=== PATIENT | female | born 1960 | race Caucasian/White ===

== ENCOUNTER → 2016-12-15 | Outpatient (CLI) | payer OTHER ==
--- NOTE | 2016-12-15 10:10 | DIAGNOSTIC IMAGING REPORT ---
THYROID ULTRASOUND HISTORY: THYROID NODULE COMPARISON: None. FINDINGS: Right lobe: 5.5 x 1.8 x 1.6 cm. There are few tiny cysts with the largest in the lower pole measuring 5 mm. Left lobe: 4.9 x 1.9 x 1.3 cm. There are few small complex nodules/cysts. Largest cystic nodule measures 10 x 7 x 4 mm. Isthmus: 3 mm in thickness. No nodules. IMPRESSION: A few small bilateral complex nodules/cysts with the largest on the left measuring 10 x 7 x 4 mm. These do not meet sonographic criteria for biopsy. Electronically signed by: Gt Vera M.D. 12/15/2016 10:09 AM Dictated Date/Time: 12/15/2016 10:04 AM
== END | disposition home or self-care (01) ==
LOC: C.ULTR 09:12
PROVIDERS: ATTEND Family Medicine
DX: E04.2 Nontoxic multinodular goiter (principal)

== ENCOUNTER → 2016-12-20 | Outpatient (CLI) | payer OTHER ==
--- NOTE | 2016-12-20 10:44 | DIAGNOSTIC IMAGING REPORT ---
RIGHT ANKLE MIN 3 VIEWS ROUTINE CLINICAL HISTORY: M25.571 right ankle pain COMPARISON: None. DISCUSSION: There is an old healed distal fibular fracture. There is an old healed fracture the medial malleolus. No acute fractures are visualized. The ankle mortise appears intact. There is a tiny plantar calcaneal spur. 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 No acute fractures Electronically signed by: Kerwin Cannon M.D. 12/20/2016 10:42 AM Dictated Date/Time: 12/20/2016 10:41 AM
== END | disposition home or self-care (01) ==
LOC: C.RAD 10:22
PROVIDERS: ATTEND Family Medicine
DX: M25.571 Pain in right ankle and joints of right foot (principal)

== ENCOUNTER → 2017-01-07 | Outpatient (CLI) | payer OTHER ==
--- NOTE | 2017-01-10 13:48 | MAMMOGRAPHY REPORT ---
BILATERAL DIGITAL SCREENING MAMMOGRAM TOMOSYNTHESIS WITH CAD: 01/07/2017 CLINICAL HISTORY: Routine screening. TECHNIQUE: Breast tomosynthesis in addition to standard 2D mammography was performed. Current study was also evaluated with a Computer Aided Detection (CAD) system. COMPARISON: Comparison is made to exam dated: 09/13/2006. BREAST COMPOSITION: There are scattered areas of fibroglandular density in both breasts. FINDINGS: There are nodular asymmetries seen within the left breast on the cc view posteriorly along the posterior nipple line, possibly projecting superiorly on the MLO view, for which spot compression tomosynthesis views and possible breast ultrasound are recommended for further evaluation. The remainder of both breasts demonstrate no suspicious masses, calcifications, or areas of sap security architect ural distortion noted. IMPRESSION: ACR BI-RADS CATEGORY 0: INCOMPLETE EVALUATION: NEED ADDITIONAL IMAGING EVALUATION Left breast asymmetries, for which additional imaging evaluation is recommended. The patient will be called to schedule an appointment. Approximately 10% of breast cancers are not detected with mammography. A negative mammographic report should not delay biopsy if a clinically suggestive mass is present. Tracee Rushing M.D. ah/:01/08/2017 14:59:46 Sql Server Developer: Susan ROWE(R)(M), [facility] letter sent: Addl Imaging 0 BI-RADS Code: ACR BI-RADS Category 0: Incomplete Evaluation: Need Additional Imaging Evaluation
== END | disposition home or self-care (01) ==
LOC: C.MAMM 14:32
PROVIDERS: ATTEND Family Medicine
DX: Z12.31 Encounter for screening mammogram for malignant neoplasm of breast (principal); R92.8 Other abnormal and inconclusive findings on diagnostic imaging of breast

== ENCOUNTER → 2017-01-21 | Outpatient (CLI) | payer OTHER ==
--- NOTE | 2017-01-21 12:35 | MAMMOGRAPHY REPORT ---
UNILATERAL LEFT DIGITAL DIAGNOSTIC MAMMOGRAM TOMOSYNTHESIS AND TARGETED LEFT ULTRASOUND: 01/21/2017 CLINICAL HISTORY: Callback from screening mammogram for left breast asymmetries. TECHNIQUE: Breast tomosynthesis in addition to standard 2D mammography was performed. Spot compress ion left CC and MLO 2-D and tomosynthesis images were obtained. COMPARISON: Comparison is made to exams dated: 01/07/2017 mammogram - [facility] an d 09/13/2006. BREAST COMPOSITION: There are scattered areas of fibroglandular density in the left breast. FINDINGS: Spot compression views demonstrate a persistent low density partially circumscribed and par tially obscured oval 10 mm mass in the left breast along the posterior nipple line on the cc view, th ought to project inferiorly based on the tomosynthesis localizer bar. Additionally, there is an oval partially circumscribed and partially obscured 6 mm mass within the left medial breast on the cc vie w which may project superiorly based on the MLO spot compression views Targeted ultrasound was performed of the left breast in the region of the mammographic masses. In th e left breast at 6:00, 3 cm from the nipple, there is an oval circumscribed hypoechoic solid appearin g mass which measures 6 x 2 x 7 mm. This corresponds with the larger mammographic mass. In the left breast at 10:00, 7 cm from the nipple, there is a possible oval circumscribed hypoechoic 5 x 4 x 3 m m mass. This may correspond with the smaller mammographic mass. Given that the masses are not clear ly cystic and may be solid, and given that they are newly visualized and not seen on the prior 2006 e xam, the masses are indeterminate and ultrasound-guided core needle biopsy is recommended for further evaluation. IMPRESSION: ACR BI-RADS CATEGORY 4: SUSPICIOUS, TARGETED ULTRASOUND ACR BI-RADS CATEGORY 4: SUSPICIO US Hypoechoic 7 mm mass in the left breast at 6:00 and hypoechoic 5 mm mass in the left breast at 10:00, which are felt to correspond with the newly visualized mammographic masses. The masses are indeterm inate and ultrasound-guided core needle biopsy is recommended for further evaluation. A phone call was made to the physician's office to confirm faxed results were received. The patient has been verbally notified of the results. She tentatively scheduled the biopsies before leaving the department. Approximately 10% of breast cancers are not detected with mammography. A negative mammographic report should not delay biopsy if a clinically suggestive mass is present. Tracee Rushing M.D. ah/:01/21/2017 09:43:52 Carbon Capture Power Plant Operator: Katherine BOWSER)(Sobeida), [facility] letter sent: Abnormal 4/5 BI-RADS Code: ACR BI-RADS Category 4: Suspicious Ultrasound BI-RADS: ACR BI-RADS Category 4: Suspici ous
== END | disposition home or self-care (01) ==
LOC: C.MAMM 09:03
PROVIDERS: ATTEND Family Medicine
DX: N63 Unspecified lump in breast (principal)

== ENCOUNTER → 2017-02-04 | Outpatient (CLI) | payer OTHER ==
--- NOTE | 2017-02-04 09:50 | Discharge Instructions ---
Discharge Instructions Procedure Procedure Date: Feb 04, 2017. Reason for visit: Left Masses. Discharge Discharge Date: Feb 04, 2017. Discharge Diagnosis: status post breast biopsy Instructions Activity Recommendations: Additional Limitations (see below) Return to School/Work: no limitations Recommended Home Diet: No Limitations Provider Instructions: ACTIVITY RECOMMENDATIONS: * No lifting, pushing, pulling or exercising the affected side for three days. RETURN TO SCHOOL/WORK: * You may return to work/school after the procedure, but do not perform any strenuous activities for 24 to 48 hours. MEDICATIONS: * Tylenol (two 325 mg) every four to six hours if needed for mild pain (if not allergic to Tylenol). DIET: * Resume previous diet. SPECIAL CARE INSTRUCTIONS: * Keep biopsy site dry for 24 hours. May shower after 24 hours, but do not soak (bathe) incision. * May remove Tegaderm (plastic patch) tomorrow AFTER showering. * Leave the steri-strips on for one week. Allow the steri-strips to fall off by themselves. If not off after one week, you may remove them. You may place a Bandaid crosswise over the strips, if desired. * Apply ice 10 minutes on and 10 minutes off as needed. * Wear a bra at bedtime to sleep more comfortably for 2-3 days. * Your referring physician should have the results after approximately 5 to 7 business days. * Call for unusual bleeding, fever, drainage, etc or if you have any questions call during normal business hours or after hours call Dr Rushing, . FOLLOW UP VISIT: Follow-up with Referring Physician as scheduled. Marko Ray Recommendations: Call your doctor if: * Temperature above 101 degrees * Pain not relieved by pain medicine ordered * There is increased drainage or redness from any incision * You have any unanswered questions or concerns. Your Doctors Instructions noted above were prepared by provider Tracee Rushing. Patient Signature Section: Patient Instructions Signature Page Allegra Escobar Patient (or Guardian) Signature/Date: I have read and understand the instructions given to me by my caregivers. Caregiver/RN/Doctor Signature/Date: The above-named patient and/or guardian has received patient instructions on this date. + Original Patient Signature Page (only) stays with chart. Please make copy for patient.
--- NOTE | 2017-02-04 12:44 | MAMMOGRAPHY REPORT ---
FINE NEEDLE ASPIRATION LEFT BREAST: 02/04/2017 CLINICAL HISTORY: Left 10:00 breast mass. COMPARISON: Comparison is made to exams dated: 02/04/2017 mammogram, 01/21/2017 mammogram, 01/21/2017 ult rasound, 01/07/2017 mammogram - [facility], and 09/13/2006. PATIENT CONSENT: The procedure, risks and benefits were discussed with the patient and informed writt en consent was obtained. A timeout was performed immediately prior to the procedure. PROCEDURE DESCRIPTION: Preprocedural ultrasound again demonstrates a persistent mass in the left 10:0 0 breast. The mass is located very deep, immediately anterior to the pectoralis muscle. Using ultra sound guidance and aseptic technique, lidocaine was administered (1% lidocaine to anesthetize the ski n and 1% lidocaine with epinephrine to anesthetize the deeper tissues. An attempt was made to biopsy the mass using a core needle biopsy device, however, the mass was located to posterior to safely per form the biopsy. Therefore, the decision was made to attempt fine-needle aspiration. Using a 22-gau [place] needles and syringes, 3 separate passes were made into the mass and samples were placed in CytoLyt . A metallic localizer clip was placed in the mass. Direct pressure was applied to the site immedia tely post procedure and hemostasis was achieved. Postprocedure unilateral mammograms were performed to confirm clip placement. The patient tolerated the procedure without complication. She was given wound care instructions. The specimens were sent to cytology. IMPRESSION: FINE NEEDLE ASPIRATION Ultrasound-guided core needle biopsy of the left 10:00 mass could not safely be performed due to the far posterior location of the mass. Therefore, fine-needle aspiration was performed and a clip was p laced. Pending benign pathology results of both masses, recommend short interval follow-up of the le ft breast in 6 months. Tracee Rushing M.D. ah/:02/04/2017 10:11:20 Line Haul Driver: Katherine BOWSER)(Sobeida), [facility]
--- NOTE | 2017-02-04 12:44 | MAMMOGRAPHY REPORT ---
UNILATERAL LEFT DIGITAL DIAGNOSTIC MAMMOGRAM TOMOSYNTHESIS: 02/04/2017 CLINICAL HISTORY: Status post left breast biopsies. TECHNIQUE: Breast tomosynthesis in addition to standard 2D mammography was performed. Postprocedura l left CC and ML tomosynthesis images including C views were obtained. COMPARISON: Comparison is made to exams dated: 01/21/2017 mammogram, 01/21/2017 ultrasound, and 7 mammogram - [facility]. BREAST COMPOSITION: There are scattered areas of fibroglandular density in the left breast. FINDINGS: A new ribbon-shaped biopsy marker clip is seen at the site of the biopsied mass in the lef t 6:00 breast (mass "A"). A new wing-shaped biopsy marker clip is seen at the site of the mass in th e left 10:00 breast for which fine-needle aspiration was performed (mass "B"). No significant postbi opsy hematoma is seen. IMPRESSION: POST PROCEDURE IMAGING FOR MARKER PLACEMENT New biopsy marker clips status post left breast biopsies. Pathology results are pending. Pending be nign pathology results, recommend short interval follow-up diagnostic tomosynthesis mammograms and po ssible ultrasound of the left breast in 6 months. Approximately 10% of breast cancers are not detected with mammography. A negative mammographic report should not delay biopsy if a clinically suggestive mass is present. Tracee Rushing M.D. ah/:02/04/2017 10:12:52 Beater Head: Katherine BOWSER)(Sobeida), [facility] BI-RADS Code: Post Procedure Imaging For Marker Placement
--- NOTE | 2017-02-04 12:44 | MAMMOGRAPHY REPORT ---
THIS REPORT HAS BEEN AMENDED. ULTRASOUND GUIDED BIOPSY LEFT BREAST: 02/04/2017 CLINICAL HISTORY: Left 6:00 breast mass. PATIENT CONSENT: The procedure, risks and benefits were discussed with the patient and informed writt en consent was obtained. A timeout was performed immediately prior to the procedure. PROCEDURE DESCRIPTION: With ultrasound guidance, aseptic technique, and lidocaine as the local anesth etic (1% lidocaine to anesthetize the skin and 1% lidocaine with epinephrine to anesthetize the deepe r tissues), the mass of concern in the left 6:00 breast (labeled mass "A") was sampled 3 times with a 14-gauge Achieve biopsy needle. Immediately thereafter, with ultrasound guidance, aseptic technique, and lidocaine as the local anesthetic, a ribbon-shaped metallic localizer clip was placed in the mas s. Direct pressure was applied to the site immediately post procedure and hemostasis was achieved. Postprocedure unilateral mammograms were performed to confirm placement of the clip in the expected l ocation of the breast mass. The patient tolerated the procedure without complication. She was given wound care instructions. The specimens were sent to pathology for analysis. COMPARISON: Comparison is made to exams dated: 01/21/2017 mammogram, 01/21/2017 ultrasound, 01/07/2017 ma mmogram - [facility], and 09/13/2006. IMPRESSION: ULTRASOUND GUIDED BIOPSY Ultrasound guided core needle biopsy of the left 6:00 breast mass (mass "A"), with clip placement. T he patient will receive pathology results from her referring provider. Tracee Rushing M.D. ah/:02/04/2017 10:06:32 Floor Worker Transfer Bay: Katherine ROWE(Irais)(Sobeida), [facility] AMENDMENT: 02/16/2017 Tracee Rushing M.D. Pathology from left breast biopsies was reviewed on 02/16/2017. The pathology of ultrasound-guided co re needle biopsy of a left 6:00 breast mass yielded fibrocystic change and adenosis, which is benign and concordant with the imaging appearance. Ultrasound-guided fine-needle aspiration of a left 10:00 breast mass yielded benign apocrine epithelium and histiocytes consistent with cyst contents, which is benign and concordant with the imaging appearance. Recommend follow-up diagnostic tomosynthesis m ammograms and possible ultrasound of the left breast in 6 months to confirm stability.
== END | disposition home or self-care (01) ==
LOC: C.MAMM 08:44
PROVIDERS: ATTEND Family Medicine
DX: N63 Unspecified lump in breast (principal); N60.22 Fibroadenosis of left breast

== ENCOUNTER → 2017-09-30 | Outpatient (CLI) | payer OTHER ==
--- NOTE | 2017-09-30 08:34 | DIAGNOSTIC IMAGING REPORT ---
R TIBIA/FIBULA 2 VIEWS ROUTINE CLINICAL HISTORY: 57 years-old Female presenting with RIGHT LEG PAIN. TECHNIQUE: Frontal and lateral views of the right lower leg were obtained. COMPARISON: Comparison made to plain radiographs of the right ankle from 12/20/2016. FINDINGS: Knee joint and ankle mortise grossly congruent. Posttraumatic deformity of the distal fibular metadiaphysis. Additional posttraumatic deformity of the medial malleolus. No acute fracture or malalignment. Mild degenerative changes of the ankle mortise suggested. No radiographic soft tissue abnormality. IMPRESSION: 1. No acute osseous injury. 2. Posttraumatic deformities of the distal fibular metadiaphysis and medial malleolus. Electronically signed by: Buck Cartwright M.D. 09/30/2017 8:32 AM Dictated Date/Time: 09/30/2017 8:31 AM
--- NOTE | 2017-09-30 08:35 | DIAGNOSTIC IMAGING REPORT ---
CHEST 2 VIEWS ROUTINE HISTORY: 57 years-old Female CHEST PAIN acute chest tightness with atypical chest pain COMPARISON: Chest radiograph 6 11/12/2015 TECHNIQUE: PA and lateral views of the chest FINDINGS: Cardiomediastinal and hilar silhouettes are within normal limits. No pneumothorax or pleural effusion. Nodular opacities best seen on the lateral view are noted measuring up to 1.6 cm projecting over the heart which may correlate with a nodular opacity of the medial segment right middle lobe on the frontal view. 1.5 cm round density projects over the spine without correlate seen on the frontal view. Bones of the chest appear grossly intact. IMPRESSION: 1. No acute process of the chest. 2. Round nodular opacities seen best on the lateral view as detailed above could be further characterized with a follow-up chest CT. The above report was generated using voice recognition software. It may contain grammatical, syntax or spelling errors. Electronically signed by: Girish Sauceda M.D. 09/30/2017 8:33 AM Dictated Date/Time: 09/30/2017 8:30 AM
[2017-09-30 09:42] LABS: BASO % 0.8 %; BASO ABS # 0.04 K/uL (0-0.2); EOS % 2.6 %; EOS ABS # 0.13 K/uL (0-0.5); HEMOGLOBIN 12.9 g/dL (12.0-16.0); IG# 0.01 K/uL (0.00-0.02); LYMPH ABS # 1.42 K/uL (1.2-3.4); MEAN CELL VOLUME 85.7 fL (80-100); MEAN CORPUSCULAR HEMOGLOBIN 27.6 pg (25-34); MEAN CORPUSCULAR HGB CONC 32.3 g/dl (32-36); MEAN PLATELET VOLUME 10.7 fL (7.4-10.4); MONO % 6.3 %; MONO ABS # 0.32 K/uL (0.11-0.59); NEUT % 62.1 %; NEUT ABS # 3.15 K/uL (1.4-6.5); PLATELET COUNT 316 K/uL (130-400); RED CELL DISTRIBUTION WIDTH CV 13.7 % (11.5-14.5); RED CELL DISTRIBUTION WIDTH SD 42.5 fL (36.4-46.3); WHITE BLOOD COUNT 5.07 K/uL (4.8-10.8)
[2017-09-30 10:11] LABS: HEMOGLOBIN A1C 5.8 % (4.5-5.6)
[2017-09-30 10:23] LABS: ALBUMIN 3.6 gm/dl (3.4-5.0); ALKALINE PHOSPHATASE 90 U/L (45-117); ALT/SGPT 25 U/L (12-78); AST/SGOT 17 U/L (15-37); BLOOD UREA NITROGEN 13 mg/dl (7-18); CALCIUM 8.7 mg/dl (8.5-10.1); CARBON DIOXIDE 28 mmol/L (21-32); CHOLESTEROL 189 mg/dl (0-200); CREATININE 0.76 mg/dl (0.60-1.20); GLUCOSE 95 mg/dl (70-99); LDL CHOLESTEROL CALCULATED 120 mg/dl; POTASSIUM 3.8 mmol/L (3.5-5.1); SODIUM 139 mmol/L (136-145)
== END | disposition home or self-care (01) ==
LOC: C.RAD 07:44
PROVIDERS: ATTEND Family Medicine
DX: M79.604 Pain in right leg (principal); R07.89 Other chest pain; R91.8 Other nonspecific abnormal finding of lung field; E04.1 Nontoxic single thyroid nodule; E78.5 Hyperlipidemia, unspecified; R73.01 Impaired fasting glucose

== ENCOUNTER → 2017-12-12 | Outpatient (CLI) | payer OTHER ==
[~2017-12-12] MED LIST: ESOM20CA PO; LORA-741 PO
--- NOTE | 2017-12-12 17:18 | DIAGNOSTIC IMAGING REPORT ---
PET/CT CLINICAL HISTORY: Pulmonary nodule. COMPARISON STUDY: Chest CT dated 11/08/2017. TECHNIQUE: One hour following the IV administration of 9.51 mCi of F-18 FDG, PET/CT examination was performed from the orbital meatal line through the bony pelvis. Noncontrast CT is performed for the purposes of anatomic correlation and attenuation correction. Note that this does not reflect a diagnostic CT examination. Images were reviewed on a separate [employer] independent workstation. Fused images were obtained. Standard uptake values reported are maximum values within the region of interest expressed in gm/mL. FINDINGS: PET FINDINGS: Head and neck: There is expected physiologic activity within the visualized brain parenchyma at the skull base and the salivary glands. Thorax: Evaluation of the thorax demonstrates expected physiologic myocardial activity. Benign-appearing muscular activity is noted in the right shoulder on image #74. There is a 1.6 cm ovoid pulmonary nodule in the right middle lobe seen on image #98. There is no significant FDG activity identified within this lesion. Abdomen and pelvis: There is expected activity within the liver, spleen, kidneys, renal collecting system, and bladder. Low-level bowel activity is likely within physical limits. Unenhanced CT images: Visualized brain parenchyma the skull base is normal in appearance. The visualized paranasal sinuses and the mastoid air cells are clear. The orbits appear intact and orbital contents are normal in appearance. There is a right ocular lens implant. The salivary and thyroid glands are normal in appearance. There is no cervical lymphadenopathy. The thoracic aorta is normal in caliber. The heart is normal in size and without pericardial effusion. There is no airspace consolidation or pleural effusion. There is no mediastinal, hilar, or axillary lymphadenopathy. A tiny hiatal hernia is observed. The unenhanced liver, spleen, adrenal glands, kidneys, and pancreas are grossly unremarkable. There is a large calcified gallstone. The abdominal aorta is normal in course and caliber. There is no bowel obstruction. A normal appendix is identified. No intraperitoneal free air or abdominal ascites is seen. There is no abdominal, retroperitoneal, pelvic sidewall, or inguinal lymphadenopathy. The bladder, uterus, and adnexa are normal as visualized. There is a small fat-containing umbilical hernia. No destructive bony lesion is seen. Mild degenerative change is noted throughout the spine. IMPRESSION: 1. There is a 1.6 cm ovoid pulmonary nodule in the right middle lobe. This was not demonstrably FDG avid, and the appearance is concerning for low-grade neoplasm such as a carcinoid. Surgical consultation is advised. 2. No additional pulmonary lesion is identified. 3. No FDG avid lesion was seen on today's PET examination. 4. Cholelithiasis. 5. Additional findings as above. Electronically signed by: Atul Hernandez M.D. 12/12/2017 5:16 PM Dictated Date/Time: 12/12/2017 4:16 PM
== END | disposition home or self-care (01) ==
LOC: C.PET 11:41
PROVIDERS: ATTEND Internal Medicine Pulmonary Disease
DX: R91.1 Solitary pulmonary nodule (principal)